=== PATIENT | male | born 1995 | race Caucasian/White ===

== ENCOUNTER 2018-01-31 19:42 | Emergency (ER) | payer OTHER ==
[2018-01-31 19:49] VITALS: BP 143/68
--- NOTE | 2018-01-31 21:23 | ER Document Report ---
ED ENT - General Mode of Arrival: Ambulatory Information source: Patient TRAVEL OUTSIDE OF THE [place] IN LAST 30 DAYS: No - General Chief Complaint: Sore Throat Stated Complaint: THROAT PAIN Time Seen by Provider: 01/31/18 21:12 Notes: 22 y.o. male with a PMHx of MRSA presents to the ED with sore throat of onset of onset Tuesday and worsening Tuesday and since continuous. Pt reports that he looked in the mirror at his throat and saw white on his bilateral tonsils with some exudate. (WENDY MARTINEZ) - Related Data Allergies/Adverse Reactions: No Known Allergies Allergy (Verified 01/31/18 19:43) Past Medical History - General Information source: Patient - Social History Smoking Status: Never Smoker Frequency of alcohol use: Occasional Occupation: College Family History: Reviewed & Not Pertinent Skin Medical History: Reports Hx MRSA - Immunizations Immunizations up to date: Yes Hx Diphtheria, Pertussis, Tetanus Vaccination: Yes Review of Systems - Review of Systems Constitutional: No symptoms reported EENT: See HPI, Throat pain Cardiovascular: No symptoms reported Respiratory: No symptoms reported Gastrointestinal: No symptoms reported Genitourinary: No symptoms reported Male Genitourinary: No symptoms reported Musculoskeletal: No symptoms reported Skin: No symptoms reported Hematologic/Lymphatic: No symptoms reported Neurological/Psychological: No symptoms reported -: Yes All other systems reviewed and negative Physical Exam - Vital signs Vitals: Temp Pulse Resp BP Pulse Ox 98.1 F 75 14 143/68 H 100 01/31/18 19:48 01/31/18 19:48 01/31/18 19:48 01/31/18 19:48 01/31/18 19:48 - Notes Notes: Physical Exam: General: Alert, appears well. HEENT: Normocephalic. Atraumatic. PERRL. Extraocular movements intact. Baking Assistant pharynx red. Exudate on his tonsils. Neck: Supple. Non-tender. Respiratory: No respiratory distress. Clear and equal breath sounds bilaterally. Cardiovascular: Regular rate and rhythm. Abdominal: Normal Inspection. Non-tender. No distension. Normal Bowel Sounds. Back: Non-tender. No deformity or step off. Extremities: Moves all four extremities. Upper extremities: Normal inspection. Normal ROM. Lower extremities: Normal inspection. No edema. Normal ROM. Neurological: Normal cognition. AAOx3. Normal speech. Psychological: Normal affect. Normal Mood. Skin: Warm. Dry. Normal color. (WENDY MARTINEZ) - Vital Signs Vital signs: Temp Pulse Resp BP Pulse Ox 98.1 F 75 14 143/68 H 100 01/31/18 19:48 01/31/18 19:48 01/31/18 19:48 01/31/18 19:48 01/31/18 19:48 Discharge - Discharge Clinical Impression: Exudative tonsillitis Condition: Stable Disposition: HOME, SELF-CARE Additional Instructions: Tonsillitis Tonsillitis is infection of the tonsils. Symptoms include sore throat, difficulty swallowing, fever and aches, and tender lumps under the angle of the jaw. Tonsillitis can be caused by bacteria or viruses. Viral tonsillitis must get better on its own. Antibiotics don't help. The doctor may test for mononucleosis if symptoms last many days. We can only treat the symptoms. Bacterial tonsillitis is treated with antibiotics. It may take a few days before improvement occurs. It's important to take all the antibiotics. Take acetaminophen or ibuprofen for pain and fever. Sip frequent clear liquids, or use popsicles or ice chips. Anesthetic sprays or lozenges may help a little (the pain of tonsillitis is deep, and isn't helped much by numbing the surface). Make sure the air in the room is not too dry. Avoid using decongestants or antihistamines. Tonsillectomy may be necessary if you have several episodes of tonsillitis within a couple of years, or if there are complications from your tonsillitis. It's usually not needed. Call the doctor if there is no improvement in two days, or if you have difficulty breathing, increasing throat pain, high fever, rash, or frequent vomiting. Take the medication as prescribed. Take Tylenol and ibuprofen for pain as needed. Drink plenty of fluids and get plenty of rest. Follow-up with local medical doctor if not improving. RETURN TO THE EMERGENCY ROOM IF ANY NEW OR WORSENING SYMPTOMS. Prescriptions: Cephalexin Monohydrate [Keflex 500 mg Capsule] 500 mg PO TID #30 capsule Scribe Attestation: 01/31/18 21:39 I personally performed the services described in the documentation, reviewed and edited the documentation which was dictated to the scribe in my presence, and it accurately records my words and actions. (CHEYANNE ADDISON) Scribe Documentation - Scribe Written by Merry:: Merry Florian [id number]/31/[id number] acting as scribe for :: Paulo
[2018-01-31] MEDS ORDERED: PREDNISONE 20 MG TABLET PO ONE (21:25)
[2018-01-31] MEDS ORDERED: CEPHALEXIN 500 MG CAPSULE PO ONE (21:25)
[2018-01-31] MEDS ORDERED: DEXAMETHASONE 4 MG TABLET PO ONE (21:39)
== END 2018-01-31 22:01 | disposition home or self-care (01) ==
LOC: ER 19:42
DX: J03.90 Acute tonsillitis, unspecified (principal); Z86.14 Personal history of Methicillin resistant Staphylococcus aureus infection
CPT/HCPCS: 99282